=== PATIENT | female | born 1945 | race Two or more races ===

== ENCOUNTER 2022-01-04 09:58 | Inpatient (IN) | payer MEDICARE, OTHER ==
[~2022-01-04] VITALS: Ht 154.9 cm; Wt 67.2 kg
[2022-01-04 11:06] LABS: Basophils # (auto) 0 10 ^3/uL (0-0.2); Eosinophils # (auto) 0 10 ^3/uL (0-0.8); Lymphocytes # (auto) 0.2 10 ^3/uL (0.4-5.4); Monocytes # (auto) 0 10 ^3/uL (0-1.3); White Blood Cell 7.9 10^3/uL (4.4-10.8)
[2022-01-04 11:25] LABS: Lactic Acid w/Reflex 6.2 mmol/L (0.4-2.0)
[2022-01-04 11:27] LABS: Albumin 3.3 g/dL (3.4-5.0); Anion Gap 13 (5-15); Blood Alcohol < 3.0 mg/dL (0-5); Blood Urea Nitrogen 30 mg/dL (7-18); Calcium 8.4 mg/dL (8.5-10.1); Carbon Dioxide 18 mmol/L (21-32); Chloride 111 mmol/L (98-107); Glucose 109 mg/dL (74-106); Potassium 3.3 mmol/L (3.5-5.1); Sodium 142 mmol/L (136-145)
[2022-01-04 11:30] LABS: Alanine Aminotransferase 24 U/L (13-56); Alkaline Phosphatase 78 U/L (45-117); Aspartate Aminotransferase 22 U/L (15-37); BUN/Creatinine Ratio 19.9; Bilirubin, Total 1.2 mg/dL (0.2-1.0); GFR African American 43 mL/min; GFR Non-African American 35 mL/min; Total Protein 6.4 g/dL (6.4-8.2)
[2022-01-04] MEDS ORDERED: SODIUM CHLORIDE 0.9% 1,000 ML IV ONE (11:30)
[2022-01-04 11:36] LABS: Basophils % (auto) 0.2 % (0.0-2.0); Eosinophils % (auto) 0.1 % (0.0-7.0); Hematocrit 38.7 % (36.0-46.0); Hemoglobin 12.6 g/dL (12.2-16.2); Lymphocytes % (auto) 2.7 % (10.0-50.0); Mean Corpuscular Hemoglobin 26.7 pg (28.0-32.0); Mean Corpuscular Hgb Conc. 32.6 g/dL (32.0-36.0); Mean Corpuscular Volume 81.9 fL (80.0-100.0); Monocytes % (auto) 0.6 % (0.0-12.0); Neutrophils # (auto) 7.6 10 ^3/uL (1.6-8.6); Neutrophils % (auto) 96.4 % (37.0-80.0); Red Blood Cells 4.73 10^6/uL (4.0-5.20); Red Cell Distribution Width 16.7 % (11.8-14.3)
[2022-01-04 12:13] LABS: INR 1.11 (0.9-1.15); Partial Thromboplastin Time 21.3 sec (24.6-33.4)
[2022-01-04 13:04] LABS: Urine Bacteria MOD /hpf (None Seen); Urine Blood Negative /uL (Negative); Urine WBC 4 /hpf (0 - 5)
[2022-01-04] MEDS ORDERED: SODIUM CHLORIDE 0.9% 1,000 ML IVB ONE (13:45)
[2022-01-04] MEDS ORDERED: cefTRIAXone 1GM/50ML D5W 50 ML IV ONE (13:45)
[2022-01-04] MEDS ORDERED: AZITHROMYCIN 500MG/ 250ML 250 ML IV ONE (13:45)
[2022-01-04] MEDS ORDERED: HYDROcodone-ACET 5/325MG TAB PO PRN (15:30)
[2022-01-04] MEDS ORDERED: MORPHINE SULFATE INJ 2 MG/ml SYRG IV PRN (15:30)
[2022-01-04] MEDS ORDERED: DOCUSATE SOD 100 MG CAP PO PRN (15:30)
[2022-01-04] MEDS: SODIUM CHLORIDE 0.9% 1,000 ML IV SCH (15:46)
[2022-01-04] MEDS: ACETAMINOPHEN 325 MG TAB PO PRN (17:29)
[2022-01-04 20:32] VITALS: BP 100/54
[2022-01-04 22:00] VITALS: BP 91/58
[2022-01-04] MEDS ORDERED: ALBUMIN 5% 250 ML IV ONE (23:15)
[2022-01-05] MEDS ORDERED: VANCOMYCIN PER PHARMACY 0 MG IV SCH (02:00)
[2022-01-05] MEDS ORDERED: VANCOMYCIN 1GM/250ML 250 ML IV ONE (02:30)
[2022-01-05 05:00] VITALS: BP 102/63
[2022-01-05 06:35] LABS: Basophils # (auto) 0 10 ^3/uL (0-0.2); Eosinophils # (auto) 0 10 ^3/uL (0-0.8); Eosinophils % (auto) 0.1 % (0.0-7.0); Hematocrit 34.2 % (36.0-46.0); Hemoglobin 10.7 g/dL (12.2-16.2); Mean Corpuscular Volume 84.8 fL (80.0-100.0); Monocytes # (auto) 0.5 10 ^3/uL (0-1.3); Red Blood Cells 4.03 10^6/uL (4.0-5.20)
[2022-01-05 06:40] LABS: Basophils % (auto) 0.2 % (0.0-2.0); Lymphocytes # (auto) 0.5 10 ^3/uL (0.4-5.4); Lymphocytes % (auto) 2.8 % (10.0-50.0); Mean Corpuscular Hemoglobin 26.6 pg (28.0-32.0); Mean Corpuscular Hgb Conc. 31.4 g/dL (32.0-36.0); Monocytes % (auto) 2.6 % (0.0-12.0); Neutrophils # (auto) 18.5 10 ^3/uL (1.6-8.6); Neutrophils % (auto) 94.3 % (37.0-80.0); Red Cell Distribution Width 16.9 % (11.8-14.3); White Blood Cell 19.7 10^3/uL (4.4-10.8)
[2022-01-05 06:41] LABS: Potassium 3.3 mmol/L (3.5-5.1)
[2022-01-05 06:54] LABS: Albumin 2.5 g/dL (3.4-5.0); BUN/Creatinine Ratio 26.8; Bilirubin, Total 1.2 mg/dL (0.2-1.0); Calcium 7.3 mg/dL (8.5-10.1); Total Protein 5.7 g/dL (6.4-8.2)
[2022-01-05 08:10] VITALS: BP 115/62
[2022-01-05] MEDS: ACETAMINOPHEN 325 MG TAB PO PRN (08:25)
[2022-01-05] MEDS: SODIUM CHLORIDE 0.9% 1,000 ML IV SCH ×2 (09:10→17:02)
[2022-01-05] MEDS ORDERED: cefTRIAXone 1GM/50ML D5W 50 ML IV SCH (10:00)
[2022-01-05] MEDS ORDERED: AZITHROMYCIN 500MG/ 250ML 250 ML IV SCH (10:00)
[2022-01-05] MEDS ORDERED: ENOXAPARIN SOD 30 MG/0.3 ML SYRINGE SC SCH (10:00)
[2022-01-05 12:15] VITALS: BP 105/60
[2022-01-05] MEDS: PIPERACILLIN-TAZOB 3.375GM 100 ML IV SCH ×2 (14:21→21:02)
[2022-01-05] MEDS ORDERED: POTASSIUM CHL 20 Meq TABLET PO ONE (14:45)
[2022-01-05 16:15] VITALS: BP 81/40
[2022-01-05 19:15] VITALS: BP 100/57
[2022-01-05 22:00] VITALS: BP 129/73
[2022-01-06 05:00] VITALS: BP 114/64
[2022-01-06] MEDS: PIPERACILLIN-TAZOB 3.375GM 100 ML IV SCH (05:18)
[2022-01-06] MEDS: SODIUM CHLORIDE 0.9% 1,000 ML IV SCH ×2 (05:21→11:43)
[2022-01-06 08:09] LABS: BUN/Creatinine Ratio 21.7
[2022-01-06 09:00] VITALS: BP 137/78
[2022-01-06 10:33] LABS: Basophils # (auto) 0.1 10 ^3/uL (0-0.2); Basophils % (auto) 0.6 % (0.0-2.0); Eosinophils # (auto) 0.1 10 ^3/uL (0-0.8); Eosinophils % (auto) 1.1 % (0.0-7.0); Hematocrit 32.1 % (36.0-46.0); Hemoglobin 10.6 g/dL (12.2-16.2); Lymphocytes # (auto) 0.5 10 ^3/uL (0.4-5.4); Lymphocytes % (auto) 5.3 % (10.0-50.0); Mean Corpuscular Hemoglobin 26.8 pg (28.0-32.0); Mean Corpuscular Hgb Conc. 33.1 g/dL (32.0-36.0); Mean Corpuscular Volume 81.1 fL (80.0-100.0); Monocytes # (auto) 0.3 10 ^3/uL (0-1.3); Monocytes % (auto) 3.4 % (0.0-12.0); Neutrophils # (auto) 9.1 10 ^3/uL (1.6-8.6); Neutrophils % (auto) 89.6 % (37.0-80.0); Red Blood Cells 3.96 10^6/uL (4.0-5.20); Red Cell Distribution Width 17.2 % (11.8-14.3); White Blood Cell 10.1 10^3/uL (4.4-10.8)
[2022-01-06 13:00] VITALS: BP 108/63
[2022-01-06] MEDS ORDERED: ERTAPENEM SOD INJ 1 GM in SODIUM CHL 0.9% 50 ML IV ONE (14:00)
[2022-01-06] MEDS ORDERED: POTASSIUM CHL 20 Meq TABLET PO ONE (14:00)
[2022-01-06] MEDS ORDERED: metroNIDAZOLE 500 MG TAB PO ONE (14:00)
[2022-01-06] MEDS: SOD CHL 0.45% 1,000 ML IV SCH (14:00)
[2022-01-06 17:00] VITALS: BP 167/94
[2022-01-06] MEDS: metroNIDAZOLE 500 MG TAB PO SCH (21:25)
[2022-01-06 22:00] VITALS: BP 158/94
[2022-01-07] MEDS: SOD CHL 0.45% 1,000 ML IV SCH (03:20)
[2022-01-07 05:00] VITALS: BP 130/70
[2022-01-07] MEDS: metroNIDAZOLE 500 MG TAB PO SCH ×3 (05:06→21:24)
[2022-01-07 05:27] LABS: Basophils # (auto) 0 10 ^3/uL (0-0.2); Basophils % (auto) 0.5 % (0.0-2.0); Eosinophils # (auto) 0.2 10 ^3/uL (0-0.8); Monocytes # (auto) 0.5 10 ^3/uL (0-1.3); Nucleated Red Blood Cells % 0.1 %; White Blood Cell 7.1 10^3/uL (4.4-10.8)
[2022-01-07 05:29] LABS: Hematocrit 31.5 % (36.0-46.0); Hemoglobin 10.4 g/dL (12.2-16.2); Lymphocytes # (auto) 0.7 10 ^3/uL (0.4-5.4); Lymphocytes % (auto) 10.5 % (10.0-50.0); Mean Corpuscular Hemoglobin 26.8 pg (28.0-32.0); Mean Corpuscular Hgb Conc. 33.1 g/dL (32.0-36.0); Mean Corpuscular Volume 81.2 fL (80.0-100.0); Monocytes % (auto) 7.2 % (0.0-12.0); Neutrophils # (auto) 5.6 10 ^3/uL (1.6-8.6); Neutrophils % (auto) 78.8 % (37.0-80.0); Red Blood Cells 3.87 10^6/uL (4.0-5.20); Red Cell Distribution Width 17.1 % (11.8-14.3)
[2022-01-07 08:49] VITALS: BP 134/68
[2022-01-07] MEDS: ERTAPENEM SOD INJ 1 GM in SODIUM CHL 0.9% 50 ML IV SCH (10:02)
[2022-01-07] MEDS: ONDANSETRON HCL 4 MG/2 ML VIAL IV PRN (11:58)
[2022-01-07 12:32] VITALS: BP 143/72
[2022-01-07] MEDS ORDERED: POTASSIUM CHL 20 Meq TABLET PO ONE (12:45)
[2022-01-07] MEDS: FLORASTOR (S. BOULARDII) 250 MG CAP PO SCH (13:37)
[2022-01-07 17:00] VITALS: BP 128/72
[2022-01-07 22:00] VITALS: BP 146/82
[2022-01-08 05:00] VITALS: BP 147/86
[2022-01-08] MEDS: metroNIDAZOLE 500 MG TAB PO SCH ×3 (05:50→21:48)
[2022-01-08 06:27] LABS: Albumin 2.8 g/dL (3.4-5.0); BUN/Creatinine Ratio 13.4; Calcium 8.5 mg/dL (8.5-10.1); Phosphorus 2.5 mg/dL (2.5-4.90); Potassium 3.2 mmol/L (3.5-5.1)
[2022-01-08] MEDS: FLORASTOR (S. BOULARDII) 250 MG CAP PO SCH (08:53)
[2022-01-08] MEDS: ERTAPENEM SOD INJ 1 GM in SODIUM CHL 0.9% 50 ML IV SCH (08:54)
[2022-01-08 09:00] VITALS: BP 138/72
[2022-01-08 13:00] VITALS: BP 128/74
[2022-01-08] MEDS ORDERED: POTASSIUM EFFERVESENT TAB 25 MEQ PO ONE (14:30)
[2022-01-08 17:00] VITALS: BP 142/94
[2022-01-08] MEDS: ONDANSETRON HCL 4 MG/2 ML VIAL IV PRN (21:49)
[2022-01-08 22:00] VITALS: BP 149/89
[2022-01-09 05:00] VITALS: BP 129/78
[2022-01-09] MEDS: metroNIDAZOLE 500 MG TAB PO SCH ×2 (06:42→13:05)
[2022-01-09 08:30] VITALS: BP 140/98
[2022-01-09 09:00] VITALS: BP 140/98
[2022-01-09] MEDS: FLORASTOR (S. BOULARDII) 250 MG CAP PO SCH (10:06)
[2022-01-09] MEDS: ERTAPENEM SOD INJ 1 GM in SODIUM CHL 0.9% 50 ML IV SCH (10:06)
[2022-01-09 13:00] VITALS: BP 146/92
[2022-01-09 16:32] VITALS: BP 146/92
[2022-01-09 17:00] VITALS: BP 142/90
[2022-01-09] MEDS: ACETAMINOPHEN 325 MG TAB PO PRN (17:25)
== END 2022-01-09 20:03 | disposition home health service (06) | DRG 871 ==
LOC: EDBD 09:58 → ER 09:58 → TELE 15:37 → TELE-WESTW 18:31 → WEST WING 01-06 14:27
PROVIDERS: ADMIT Internal Medicine; ATTEND Internal Medicine
PROC: 05H933Z Insertion of Infusion Device into Right Brachial Vein, Percutaneous Approach (ICD-10-PCS; principal; 2022-01-06)
PROC: B54MZZA Ultrasonography of Right Upper Extremity Veins, Guidance (ICD-10-PCS; 2022-01-06)
DX: A41.9 Sepsis, unspecified organism (principal); I21.A1 Myocardial infarction type 2; J15.6 Pneumonia due to other Gram-negative bacteria; J96.01 Acute respiratory failure with hypoxia; N17.0 Acute kidney failure with tubular necrosis; E44.1 Mild protein-calorie malnutrition; N39.0 Urinary tract infection, site not specified; Z16.12 Extended spectrum beta lactamase (ESBL) resistance; K52.9 Noninfective gastroenteritis and colitis, unspecified; E87.6 Hypokalemia; D69.6 Thrombocytopenia, unspecified; Z68.27 Body mass index [BMI] 27.0-27.9, adult; D64.9 Anemia, unspecified; N18.30 Chronic kidney disease, stage 3 unspecified; I12.9 Hypertensive chronic kidney disease with stage 1 through stage 4 chronic kidney disease, or unspecified chronic kidney disease; B96.20 Unspecified Escherichia coli [E. coli] as the cause of diseases classified elsewhere; Z87.440 Personal history of urinary (tract) infections; Z86.73 Personal history of transient ischemic attack (TIA), and cerebral infarction without residual deficits; Z20.822 Contact with and (suspected) exposure to COVID-19
CPT/HCPCS: 36415; 70450; 71045; 80048; 80053; 80069; 80320; 81001; 82962; 83605; 83735; 83880; 84443; 84484; 85025; 85610; 85730; 87040; 87077; 87186; 93005; 96361; 96365; 96366; 96368; G0378; J0696; J1335; J2405; J2543

== ENCOUNTER 2022-01-14 21:51 | Emergency (ER) | payer MEDICARE, OTHER ==
[~2022-01-14] VITALS: Ht 165.1 cm; Wt 70.0 kg
[2022-01-14 22:36] LABS: Basophils # (auto) 0.1 10 ^3/uL (0-0.2); Nucleated Red Blood Cells % 0.1 %
[2022-01-14 22:38] LABS: Basophils % (auto) 0.5 % (0.0-2.0); Eosinophils # (auto) 0 10 ^3/uL (0-0.8); Eosinophils % (auto) 0.4 % (0.0-7.0); Hematocrit 32.1 % (36.0-46.0); Hemoglobin 10.7 g/dL (12.2-16.2); Lymphocytes # (auto) 1.4 10 ^3/uL (0.4-5.4); Lymphocytes % (auto) 12.2 % (10.0-50.0); Mean Corpuscular Hemoglobin 26.6 pg (28.0-32.0); Mean Corpuscular Hgb Conc. 33.2 g/dL (32.0-36.0); Mean Corpuscular Volume 80.2 fL (80.0-100.0); Monocytes # (auto) 0.7 10 ^3/uL (0-1.3); Monocytes % (auto) 6.1 % (0.0-12.0); Neutrophils # (auto) 9.3 10 ^3/uL (1.6-8.6); Neutrophils % (auto) 80.8 % (37.0-80.0); Red Blood Cells 4.01 10^6/uL (4.0-5.20); Red Cell Distribution Width 16.7 % (11.8-14.3); White Blood Cell 11.6 10^3/uL (4.4-10.8)
[2022-01-14 22:57] LABS: Calcium 8.4 mg/dL (8.5-10.1)
[2022-01-14 23:00] LABS: Bilirubin, Total 1.3 mg/dL (0.2-1.0); Total Protein 6.8 g/dL (6.4-8.2)
[2022-01-15] MEDS ORDERED: KETOROLAC TROMETH 60MG/2ML VIAL IM ONE (01:30)
[2022-01-15 02:05] LABS: Basophils # (auto) 0.2 10 ^3/uL (0-0.2); Eosinophils # (auto) 0.1 10 ^3/uL (0-0.8); Hemoglobin 10.4 g/dL (12.2-16.2); Lymphocytes # (auto) 1.7 10 ^3/uL (0.4-5.4); Neutrophils # (auto) 8.7 10 ^3/uL (1.6-8.6)
[2022-01-15 02:05] LABS: Urine Bacteria NONE SEEN /hpf (None Seen); Urine Blood Negative /uL (Negative); Urine Specific Gravity 1.013 (1.001-1.035); Urine WBC 8 /hpf (0 - 5)
[2022-01-15 02:07] LABS: Basophils % (auto) 1.5 % (0.0-2.0); Eosinophils % (auto) 0.7 % (0.0-7.0); Hematocrit 31.2 % (36.0-46.0); Lymphocytes % (auto) 14.6 % (10.0-50.0); Mean Corpuscular Hemoglobin 26.8 pg (28.0-32.0); Mean Corpuscular Hgb Conc. 33.3 g/dL (32.0-36.0); Mean Corpuscular Volume 80.4 fL (80.0-100.0); Monocytes # (auto) 0.8 10 ^3/uL (0-1.3); Monocytes % (auto) 6.7 % (0.0-12.0); Neutrophils % (auto) 76.5 % (37.0-80.0); Nucleated Red Blood Cells % 0.1 %; Red Blood Cells 3.88 10^6/uL (4.0-5.20); Red Cell Distribution Width 16.5 % (11.8-14.3); White Blood Cell 11.3 10^3/uL (4.4-10.8)
[2022-01-15 02:33] LABS: Albumin 2.9 g/dL (3.4-5.0); BUN/Creatinine Ratio 9.9; Calcium 8.2 mg/dL (8.5-10.1)
[2022-01-15 02:36] LABS: Bilirubin, Total 1.3 mg/dL (0.2-1.0); Total Protein 6.6 g/dL (6.4-8.2)
[2022-01-15 02:39] LABS: Potassium 2.9 mmol/L (3.5-5.1)
[2022-01-15] MEDS ORDERED: POTASSIUM CHL 20 Meq TABLET PO ONE (03:00)
[2022-01-15 07:20] VITALS: BP 113/75
== END 2022-01-15 07:26 | disposition home or self-care (01) ==
LOC: EDBD 21:51 → EDUNIT# 21:51 → ER 21:51
DX: R10.31 Right lower quadrant pain (principal); I10 Essential (primary) hypertension; Z86.73 Personal history of transient ischemic attack (TIA), and cerebral infarction without residual deficits
CPT/HCPCS: 36415; 74176; 80053; 81001; 83880; 84484; 85025; 93005; 96372; 99285; J1885

== ENCOUNTER 2023-02-25 17:28 | Inpatient (IN) | payer MEDICARE, OTHER ==
[~2023-02-25] VITALS: Ht 154.9 cm; Wt 67.0 kg
[2023-02-25 18:19] LABS: Basophils # (auto) 0.1 10 ^3/uL (0-0.2); Eosinophils # (auto) 0.1 10 ^3/uL (0-0.8); Eosinophils % (auto) 1.4 % (0.0-7.0); Hematocrit 36.4 % (36.0-46.0); Hemoglobin 12.1 g/dL (12.2-16.2); Lymphocytes # (auto) 1.5 10 ^3/uL (0.4-5.4); Lymphocytes % (auto) 19.7 % (10.0-50.0); Mean Corpuscular Hemoglobin 28.2 pg (28.0-32.0); Mean Corpuscular Hgb Conc. 33.2 g/dL (32.0-36.0); Mean Corpuscular Volume 84.9 fL (80.0-100.0); Monocytes # (auto) 0.5 10 ^3/uL (0-1.3); Monocytes % (auto) 6.9 % (0.0-12.0); Neutrophils # (auto) 5.3 10 ^3/uL (1.6-8.6); Nucleated Red Blood Cells % 0.1 %; Red Blood Cells 4.29 10^6/uL (4.0-5.20); Red Cell Distribution Width 15.7 % (11.8-14.3); White Blood Cell 7.5 10^3/uL (4.4-10.8)
[2023-02-25 18:27] LABS: Urine Bacteria FEW /hpf (None Seen); Urine Blood Negative /uL (Negative); Urine Clarity HAZY (Clear); Urine Color Yellow (Yellow); Urine Protein, UAD 1+ (Negative); Urine Specific Gravity 1.014 (1.001-1.035); Urine Urobilinogen Normal (Negative); Urine WBC 60 /hpf (0 - 5); Urine pH 5.5 (5.0-8.0)
[2023-02-25 18:43] LABS: Alanine Aminotransferase 25 U/L (7-40); Albumin 4.3 g/dL (3.2-4.8); Alkaline Phosphatase 63 U/L (46-116); Anion Gap 11 (5-15); Aspartate Aminotransferase 20 U/L (13-40); BUN/Creatinine Ratio 15.5 (10.0-20.0); Blood Urea Nitrogen 18 mg/dL (9-23); Carbon Dioxide 18 mmol/L (20-30); Chloride 111 mmol/L (98-107); Glucose 134 mg/dL (74-106); Magnesium 1.9 mg/dL (1.6-2.6); Potassium 3.5 mmol/L (3.5-5.1); Sodium 140 mmol/L (136-145)
[2023-02-25 18:44] LABS: Total Protein 6.8 g/dL (5.7-8.2)
[2023-02-25] MEDS ORDERED: SODIUM CHLORIDE 0.9% 2,050 ML IV ONE (22:00)
[2023-02-25] MEDS ORDERED: ACETAMINOPHEN 325 MG TAB PO PRN ×2 (22:00→22:15)
[2023-02-25] MEDS ORDERED: cefTRIAXone 1GM/50ML D5W 50 ML IV SCH (22:00)
[2023-02-25 22:10] VITALS: RESP 16; O2SAT 98
[2023-02-25] MEDS ORDERED: MORPHINE SULFATE INJ 2 MG/ml SYRG IV PRN (22:15)
[2023-02-25] MEDS ORDERED: ONDANSETRON HCL 4 MG/2 ML VIAL IV PRN (22:15)
[2023-02-25] MEDS ORDERED: NITROGLYCERIN 0.4 MG SL TAB SL PRN (22:15)
[2023-02-25] MEDS: cefTRIAXone 1GM/50ML D5W 50 ML IV SCH (23:45)
[2023-02-26 05:35] LABS: Anion Gap 9 (5-15); Basophils # (auto) 0 10 ^3/uL (0-0.2); Basophils % (auto) 0.6 % (0.0-2.0); Carbon Dioxide 23 mmol/L (20-30); Chloride 110 mmol/L (98-107); Eosinophils # (auto) 0.2 10 ^3/uL (0-0.8); Eosinophils % (auto) 3.1 % (0.0-7.0); Hematocrit 33.7 % (36.0-46.0); Hemoglobin 11.2 g/dL (12.2-16.2); Lymphocytes # (auto) 1.9 10 ^3/uL (0.4-5.4); Lymphocytes % (auto) 33.6 % (10.0-50.0); Mean Corpuscular Hemoglobin 28.4 pg (28.0-32.0); Mean Corpuscular Hgb Conc. 33.3 g/dL (32.0-36.0); Mean Corpuscular Volume 85.3 fL (80.0-100.0); Monocytes # (auto) 0.5 10 ^3/uL (0-1.3); Monocytes % (auto) 8.5 % (0.0-12.0); Neutrophils # (auto) 3.1 10 ^3/uL (1.6-8.6); Neutrophils % (auto) 54.2 % (37.0-80.0); Nucleated Red Blood Cells % 0.2 %; Potassium 3.4 mmol/L (3.5-5.1); Red Blood Cells 3.95 10^6/uL (4.0-5.20); Red Cell Distribution Width 15.9 % (11.8-14.3); Sodium 142 mmol/L (136-145); White Blood Cell 5.8 10^3/uL (4.4-10.8)
[2023-02-26 05:36] LABS: Calcium 8.6 mg/dL (8.5-10.1)
[2023-02-26 05:41] LABS: BUN/Creatinine Ratio 14.1 (10.0-20.0); Blood Urea Nitrogen 12 mg/dL (9-23); Glucose 91 mg/dL (74-106)
[2023-02-26 09:00] VITALS: PULSE 61; RESP 12; O2SAT 95
[2023-02-26] MEDS ORDERED: cefTRIAXone 1GM/50ML D5W 50 ML IV SCH (09:00)
[2023-02-26] MEDS: ENOXAPARIN SOD 40 MG/0.4 ML SYRINGE SC SCH (09:58)
[2023-02-26] MEDS: amLODIPine BESYLATE 5 MG TAB PO SCH (09:59)
[2023-02-26 11:21] VITALS: BP 143/89; PULSE 64; RESP 16; TEMP 97.5; O2SAT 94
[2023-02-26 16:50] VITALS: BP 127/78; PULSE 69; RESP 18; TEMP 98.4; O2SAT 93
[2023-02-26 20:00] VITALS: BP 145/83; PULSE 81; PULSE 82; TEMP 36.9
[2023-02-26 22:00] VITALS: BP 134/71; PULSE 67; RESP 17; TEMP 97.6; O2SAT 96
[2023-02-26] MEDS: DONEPEZIL HYDROCHLORIDE 5 MG TAB PO SCH (22:22)
[2023-02-26] MEDS: cefTRIAXone 1GM/50ML D5W 50 ML IV SCH (22:22)
[2023-02-27] VITALS (7 sets, daily range): BP systolic 108–141; BP diastolic 61–90; PULSE 64–89; RESP 16–20; TEMP 97.8–98.3; O2SAT 92–98
[2023-02-27] MEDS: amLODIPine BESYLATE 5 MG TAB PO SCH (08:42)
[2023-02-27] MEDS: ENOXAPARIN SOD 40 MG/0.4 ML SYRINGE SC SCH (08:43)
[2023-02-27] MEDS ORDERED: ASPirin 81 mg TAB PO ONE (21:00)
[2023-02-27] MEDS: HYDROCORTISONE 2.5% TOPICAL CREAM 30GM TUBE TOP SCH (21:51)
[2023-02-27] MEDS: DONEPEZIL HYDROCHLORIDE 5 MG TAB PO SCH (21:51)
[2023-02-27] MEDS: cefTRIAXone 1GM/50ML D5W 50 ML IV SCH (22:08)
[2023-02-28 02:39] LABS: COVID19 ANTIGEN SOFIA FIA NEGATIVE (NEGATIVE)
[2023-02-28 05:00] VITALS: BP 125/82; PULSE 65; RESP 16; TEMP 98.3; O2SAT 94
[2023-02-28 08:00] VITALS: BP 141/79; PULSE 55; PULSE 67; RESP 19; TEMP 99; O2SAT 97
[2023-02-28] MEDS: amLODIPine BESYLATE 5 MG TAB PO SCH (08:32)
[2023-02-28] MEDS: ENOXAPARIN SOD 40 MG/0.4 ML SYRINGE SC SCH (08:34)
[2023-02-28] MEDS: HYDROCORTISONE 2.5% TOPICAL CREAM 30GM TUBE TOP SCH (08:56)
[2023-02-28] MEDS ORDERED: ASPirin 81 mg TAB PO SCH (10:00)
[2023-02-28 10:38] VITALS: BP 142/79; PULSE 67; RESP 18; TEMP 98.2; O2SAT 97
== END 2023-02-28 13:18 | DRG 65 ==
LOC: ER 17:28 → TELE 22:20 → TELE-CENTR 02-26 11:09
PROVIDERS: ADMIT Nurse Practitioner; ATTEND Family Medicine
PROC: 05H933Z Insertion of Infusion Device into Right Brachial Vein, Percutaneous Approach (ICD-10-PCS; principal; 2023-02-27)
PROC: B54MZZA Ultrasonography of Right Upper Extremity Veins, Guidance (ICD-10-PCS; 2023-02-27)
DX: I63.9 Cerebral infarction, unspecified (principal); N39.0 Urinary tract infection, site not specified; F03.90 Unspecified dementia, unspecified severity, without behavioral disturbance, psychotic disturbance, mood disturbance, and anxiety; I10 Essential (primary) hypertension; R29.6 Repeated falls; Z20.822 Contact with and (suspected) exposure to COVID-19
CPT/HCPCS: 36415; 70450; 70551; 71045; 72131; 80048; 80053; 81001; 83605; 83735; 84484; 85025; 87040; 87086; 87426; 93005; 96360; 96372; 97163; G0378; J0696

== ENCOUNTER 2023-07-15 13:26 | Inpatient (IN) | payer MEDICARE, MEDICAID ==
[~2023-07-15] VITALS: Ht 157.5 cm; Wt 68.9 kg
[2023-07-15 14:04] LABS: Basophils # (auto) 0 10 ^3/uL (0-0.2); Basophils % (auto) 0.5 % (0.0-2.0); Eosinophils # (auto) 0.1 10 ^3/uL (0-0.8); Eosinophils % (auto) 1.4 % (0.0-7.0); Hematocrit 39.8 % (36.0-46.0); Hemoglobin 13.1 g/dL (12.2-16.2); Lymphocytes # (auto) 1.8 10 ^3/uL (0.4-5.4); Lymphocytes % (auto) 19.6 % (10.0-50.0); Mean Corpuscular Hemoglobin 28.5 pg (28.0-32.0); Mean Corpuscular Hgb Conc. 32.9 g/dL (32.0-36.0); Mean Corpuscular Volume 86.7 fL (80.0-100.0); Monocytes # (auto) 0.5 10 ^3/uL (0-1.3); Monocytes % (auto) 5.6 % (0.0-12.0); Neutrophils # (auto) 6.7 10 ^3/uL (1.6-8.6); Neutrophils % (auto) 72.9 % (37.0-80.0); Red Blood Cells 4.58 10^6/uL (4.0-5.20); Red Cell Distribution Width 15.5 % (11.8-14.3); White Blood Cell 9.2 10^3/uL (4.4-10.8)
[2023-07-15 14:48] LABS: Chloride 109 mmol/L (98-107); Potassium 4.3 mmol/L (3.5-5.1); Sodium 141 mmol/L (136-145)
[2023-07-15 14:49] LABS: Anion Gap 11 (5-15); Carbon Dioxide 21 mmol/L (20-30)
[2023-07-15 14:50] LABS: Calcium 9.1 mg/dL (8.5-10.1)
[2023-07-15 14:54] LABS: BUN/Creatinine Ratio 22.9 (10.0-20.0); Blood Urea Nitrogen 22 mg/dL (9-23); Glucose 103 mg/dL (74-106)
[2023-07-15] MEDS ORDERED: DOCUSATE SOD 100 MG CAP PO PRN (16:15)
[2023-07-15] MEDS: SODIUM CHLORIDE 0.9% 500 ML IV ONE (17:20)
[2023-07-15] MEDS: ONDANSETRON HCL 4 MG/2 ML VIAL IV ONE (17:21)
[2023-07-15 17:25] LABS: Urine Bacteria NONE SEEN /hpf (None Seen); Urine Blood Negative /uL (Negative); Urine Clarity Clear (Clear); Urine Color Yellow (Yellow); Urine Protein, UAD Negative (Negative); Urine Specific Gravity 1.012 (1.001-1.035); Urine Urobilinogen Normal (Negative); Urine WBC 3 /hpf (0 - 5); Urine pH 5.5 (5.0-8.0)
[2023-07-15] MEDS: ACETAMINOPHEN 325 MG TAB PO PRN (17:28)
[2023-07-15] MEDS: LACTATED RINGER'S 1,000 ML IV ONE (20:09)
[2023-07-15] MEDS: SODIUM CHLOR 0.9% PF (SALINE LOCK) 10ML VIAL/SYR IV SCH (22:00)
[2023-07-15 23:30] VITALS: PULSE 68; RESP 19; O2SAT 95
[2023-07-16] MEDS: ENOXAPARIN SOD 40 MG/0.4 ML SYRINGE SC SCH (08:55)
[2023-07-16] MEDS: LORazepam 2MG/ML-1ML VIAL IV ONE (14:00)
[2023-07-16] MEDS: ASPirin 81 mg TAB PO ONE (14:07)
[2023-07-16] MEDS: ONDANSETRON HCL 4 MG/2 ML VIAL IV PRN (19:47)
[2023-07-16] MEDS: ATORVASTATIN 20 MG TAB PO SCH (21:48)
[2023-07-16] MEDS: DONEPEZIL HYDROCHLORIDE 5 MG TAB PO SCH (21:48)
[2023-07-17] VITALS (9 sets, daily range): BP systolic 112–141; BP diastolic 65–81; PULSE 50–86; RESP 16–20; TEMP 97.7–98.5; O2SAT 91–96
[2023-07-17] MEDS ORDERED: DONE5TAB80 PO (02:03)
[2023-07-17] MEDS ORDERED: HYDR-4227 PO (02:03)
[2023-07-17] MEDS ORDERED: AMLO1TAB22 PO (02:03)
[2023-07-17] MEDS ORDERED: ASPI-543 PO (02:03)
[2023-07-17] MEDS: HYDROcodone-ACET 5/325MG TAB PO PRN (03:51)
[2023-07-17 06:39] LABS: INR 1.09 (0.9-1.15); Prothrombin Time 11.4 sec (9.3-11.8)
[2023-07-17 06:51] LABS: Albumin 3.8 g/dL (3.2-4.8); Alkaline Phosphatase 63 U/L (46-116); Anion Gap 8 (5-15); Aspartate Aminotransferase 15 U/L (13-40); BUN/Creatinine Ratio 15.8 (10.0-20.0); Bilirubin, Total 0.9 mg/dL (0.2-1.0); Blood Urea Nitrogen 15 mg/dL (9-23); Carbon Dioxide 23 mmol/L (20-30); Chloride 110 mmol/L (98-107); Cholesterol 166 mg/dL (< 200); Glucose 92 mg/dL (74-106); HDL Cholesterol 34 mg/dL (40-59); LDL Cholesterol 123 mg/dL (< 100); Potassium 4.2 mmol/L (3.5-5.1); Sodium 141 mmol/L (136-145); Total Protein 6.4 g/dL (5.7-8.2); Triglycerides 107 mg/dL (< 150)
[2023-07-17 06:56] LABS: Alanine Aminotransferase < 9 U/L (7-40)
[2023-07-17] MEDS: ASPirin 81 mg TAB PO SCH (09:52)
[2023-07-17] MEDS: amLODIPine BESYLATE 5 MG TAB PO SCH (09:52)
[2023-07-17] MEDS ORDERED: DONE10TA91 PO (14:00)
[2023-07-17] MEDS ORDERED: AMLO1TAB23 PO (14:00)
[2023-07-17] MEDS ORDERED: ERGO1CAP12 PO (14:03)
[2023-07-17] MEDS ORDERED: MELO-335 PO (14:03)
[2023-07-17] MEDS ORDERED: OMEP20TA PO (14:03)
[2023-07-17] MEDS ORDERED: TRAZ-227 PO (14:03)
[2023-07-17] MEDS ORDERED: CITA10TA5 PO (14:03)
[2023-07-18 05:00] VITALS: BP 123/74; PULSE 54; RESP 16; TEMP 98.4; O2SAT 95
[2023-07-18 07:30] VITALS: PULSE 47; RESP 18
[2023-07-18 09:06] VITALS: BP 118/61; PULSE 51; RESP 20; TEMP 98.4; O2SAT 98
[2023-07-18] MEDS ORDERED: ASPI-325 PO (09:14)
[2023-07-18] MEDS ORDERED: ATOR20TA50 PO (09:14)
[2023-07-18 10:30] VITALS: BP 118/61; PULSE 63; RESP 18; TEMP 36.9; O2SAT 98
== END 2023-07-18 11:12 | disposition home or self-care (01) | DRG 69 ==
LOC: ER 13:26 → TELE 16:14 → TELE-CENTR 07-16 22:32
PROVIDERS: ADMIT Internal Medicine; ATTEND Internal Medicine
DX: G45.9 Transient cerebral ischemic attack, unspecified (principal); F03.94 Unspecified dementia, unspecified severity, with anxiety; B69.0 Cysticercosis of central nervous system; F03.93 Unspecified dementia, unspecified severity, with mood disturbance; H53.2 Diplopia; N18.30 Chronic kidney disease, stage 3 unspecified; J44.9 Chronic obstructive pulmonary disease, unspecified; E11.22 Type 2 diabetes mellitus with diabetic chronic kidney disease; E78.5 Hyperlipidemia, unspecified; Z96.653 Presence of artificial knee joint, bilateral; I12.9 Hypertensive chronic kidney disease with stage 1 through stage 4 chronic kidney disease, or unspecified chronic kidney disease; F17.200 Nicotine dependence, unspecified, uncomplicated; Z87.442 Personal history of urinary calculi; Z90.710 Acquired absence of both cervix and uterus; Z86.73 Personal history of transient ischemic attack (TIA), and cerebral infarction without residual deficits; Z79.899 Other long term (current) drug therapy; Z79.82 Long term (current) use of aspirin; Z87.440 Personal history of urinary (tract) infections; Z80.1 Family history of malignant neoplasm of trachea, bronchus and lung
CPT/HCPCS: 36415; 70450; 70551; 71045; 80048; 80053; 80061; 81001; 82607; 82746; 84443; 85025; 85610; 85730; 93306; 93886; 97110; 97116; 97163; G0378; J2405

== ENCOUNTER 2023-10-21 18:57 | Emergency (ER) | payer MEDICARE, MEDICAID ==
[~2023-10-21] VITALS: Ht 157.5 cm; Wt 66.3 kg
[~2023-10-21 18:57] MED LIST: AMLO1TAB23 PO; ASPI-325 PO; ASPI-543 PO; ATOR20TA50 PO; CITA10TA5 PO; DONE10TA91 PO; ERGO1CAP12 PO; HYDR-2792 PO; MELO15TA29 PO; OMEP20TA PO; TRAZ-227 PO
[2023-10-21 19:44] LABS: Urine Bacteria FEW /hpf (None Seen); Urine Blood Negative /uL (Negative); Urine Clarity Clear (Clear); Urine Color Light-Yellow (Yellow); Urine Protein, UAD Negative (Negative); Urine Specific Gravity 1.011 (1.001-1.035); Urine Urobilinogen Normal (Negative); Urine WBC 11 /hpf (0 - 5)
[2023-10-21 20:22] LABS: Basophils # (auto) 0 10 ^3/uL (0-0.2); Basophils % (auto) 0.4 % (0.0-2.0); Eosinophils # (auto) 0.1 10 ^3/uL (0-0.8); Eosinophils % (auto) 0.9 % (0.0-7.0); Hematocrit 35.8 % (36.0-46.0); Hemoglobin 12.1 g/dL (12.2-16.2); Lymphocytes # (auto) 1.6 10 ^3/uL (0.4-5.4); Lymphocytes % (auto) 23.3 % (10.0-50.0); Mean Corpuscular Hemoglobin 28.8 pg (28.0-32.0); Mean Corpuscular Hgb Conc. 33.8 g/dL (32.0-36.0); Mean Corpuscular Volume 85.1 fL (80.0-100.0); Monocytes # (auto) 0.4 10 ^3/uL (0-1.3); Monocytes % (auto) 6.1 % (0.0-12.0); Neutrophils # (auto) 4.8 10 ^3/uL (1.6-8.6); Neutrophils % (auto) 69.3 % (37.0-80.0); Red Cell Distribution Width 15.6 % (11.8-14.3); White Blood Cell 6.9 10^3/uL (4.4-10.8)
[2023-10-21 20:23] LABS: Chloride 110 mmol/L (98-107); Potassium 3.9 mmol/L (3.5-5.1); Sodium 142 mmol/L (136-145)
[2023-10-21 20:24] LABS: Anion Gap 6 (5-15); Calcium 9.6 mg/dL (8.7-10.4); Carbon Dioxide 26 mmol/L (20-30)
[2023-10-21 20:29] LABS: BUN/Creatinine Ratio 19.8 (10.0-20.0); Blood Urea Nitrogen 20 mg/dL (9-23); Glucose 102 mg/dL (74-106)
[2023-10-21 21:25] VITALS: BP 149/81; PULSE 64; RESP 18; TEMP 98.9; O2SAT 98
[2023-10-21] MEDS: KETOROLAC TROMETH 60MG/2ML VIAL IM ONE (21:31)
== END 2023-10-21 21:35 | disposition home or self-care (01) ==
LOC: ER 18:57
DX: R51.9 Headache, unspecified (principal); I10 Essential (primary) hypertension; E78.5 Hyperlipidemia, unspecified; G30.9 Alzheimer's disease, unspecified; F02.80 Dementia in other diseases classified elsewhere, unspecified severity, without behavioral disturbance, psychotic disturbance, mood disturbance, and anxiety; Z98.890 Other specified postprocedural states
CPT/HCPCS: 36415; 70450; 80048; 81001; 84484; 85025; 93005; 96372; 99285; J1885

== ENCOUNTER 2024-01-10 20:33 | Inpatient (IN) | payer MEDICARE, MEDICAID ==
[~2024-01-10] VITALS: Ht 157.5 cm; Wt 63.3 kg
[2024-01-10] MEDS: ACETAMINOPHEN 325 MG TAB PO ONE (21:29)
[2024-01-10 22:01] LABS: Urine Bacteria None Seen /hpf (None Seen)
[2024-01-10 22:02] LABS: Basophils # (auto) 0 10 ^3/uL (0-0.2); Basophils % (auto) 0.3 % (0.0-2.0); Eosinophils # (auto) 0 10 ^3/uL (0-0.8); Eosinophils % (auto) 0.2 % (0.0-7.0); Hematocrit 38.1 % (36.0-46.0); Hemoglobin 12.8 g/dL (12.2-16.2); Lymphocytes # (auto) 0.9 10 ^3/uL (0.4-5.4); Lymphocytes % (auto) 7.7 % (10.0-50.0); Mean Corpuscular Hemoglobin 29.5 pg (28.0-32.0); Mean Corpuscular Hgb Conc. 33.6 g/dL (32.0-36.0); Mean Corpuscular Volume 87.6 fL (80.0-100.0); Monocytes # (auto) 0.9 10 ^3/uL (0-1.3); Monocytes % (auto) 7.7 % (0.0-12.0); Neutrophils # (auto) 9.6 10 ^3/uL (1.6-8.6); Neutrophils % (auto) 84.1 % (37.0-80.0); Platelet Count (auto) 203 10^3/uL (140-450); Red Blood Cells 4.34 10^6/uL (4.0-5.20); Red Cell Distribution Width 14.7 % (11.8-14.3); White Blood Cell 11.5 10^3/uL (4.4-10.8)
[2024-01-10 22:03] LABS: Alanine Aminotransferase 45 U/L (7-40); Albumin 4.5 g/dL (3.2-4.8); Alkaline Phosphatase 62 U/L (46-116); Anion Gap 10 (5-15); Aspartate Aminotransferase 29 U/L (13-40); BUN/Creatinine Ratio 12.8 (10.0-20.0); Blood Urea Nitrogen 14 mg/dL (9-23); Calcium 9.5 mg/dL (8.7-10.4); Carbon Dioxide 20 mmol/L (20-30); Chloride 109 mmol/L (98-107); Glucose 119 mg/dL (74-106); Potassium 3.9 mmol/L (3.5-5.1); Sodium 139 mmol/L (136-145)
[2024-01-10 22:04] LABS: Bilirubin, Total 2.1 mg/dL (0.2-1.0); Total Protein 7.5 g/dL (5.7-8.2)
[2024-01-10 22:18] LABS: Urine Blood Negative /uL (Negative); Urine Clarity Clear (Clear); Urine Color Yellow (Yellow); Urine Protein, UAD Negative (Negative); Urine Specific Gravity 1.009 (1.001-1.035); Urine Urobilinogen Normal (Negative); Urine WBC 28 /hpf (0 - 5); Urine pH 5.5 (5.0-9.0)
[2024-01-11] MEDS: cefTRIAXone 1GM/50ML D5W 50 ML IV ONE (02:10)
[2024-01-11 02:36] VITALS: PULSE 72; RESP 16; O2SAT 95
[2024-01-11 03:20] VITALS: PULSE 62; RESP 18; O2SAT 97
[2024-01-11] MEDS ORDERED: HYDROcodone-ACET 5/325MG TAB PO PRN (11:00)
[2024-01-11] MEDS ORDERED: ONDANSETRON HCL 4 MG/2 ML VIAL IV PRN (11:00)
[2024-01-11] MEDS ORDERED: ACETAMINOPHEN 325 MG TAB PO PRN (11:00)
[2024-01-11] MEDS ORDERED: ERGOCALCIFEROL 50,000 UNIT(1.25MG) CAP PO SCH (11:00)
[2024-01-11] MEDS ORDERED: DOCUSATE SOD 100 MG CAP PO PRN (11:00)
[2024-01-11] MEDS ORDERED: HYDROmorphone HCL 2 MG/ML VL/or syr IV PRN (11:00)
[2024-01-11] MEDS: SODIUM CHLOR 0.9% PF (SALINE LOCK) 10ML VIAL/SYR IV SCH (14:00)
[2024-01-11 15:07] VITALS: BP 117/61; PULSE 61; RESP 16; TEMP 98.2; O2SAT 93
[2024-01-11 20:00] VITALS: PULSE 65; RESP 15; O2SAT 95
[2024-01-11] MEDS: ATORVASTATIN 20 MG TAB PO SCH (20:57)
[2024-01-11] MEDS: hydrALAZINE HCL 10 MG TAB PO SCH (20:57)
[2024-01-11] MEDS: traZODone HCL 50 MG TAB PO SCH (20:59)
[2024-01-11 21:00] VITALS: BP 136/70; PULSE 65; RESP 15; TEMP 100.1; O2SAT 95
[2024-01-12 01:00] VITALS: BP 125/76; PULSE 88; RESP 15; TEMP 100; O2SAT 93
[2024-01-12 05:00] VITALS: BP 124/69; PULSE 84; RESP 14; TEMP 100.5; O2SAT 94
[2024-01-12 06:40] LABS: Basophils # (auto) 0 10 ^3/uL (0-0.2); Basophils % (auto) 0.3 % (0.0-2.0); Eosinophils # (auto) 0 10 ^3/uL (0-0.8); Eosinophils % (auto) 0.3 % (0.0-7.0); Hematocrit 36.1 % (36.0-46.0); Hemoglobin 12.3 g/dL (12.2-16.2); Lymphocytes # (auto) 1.3 10 ^3/uL (0.4-5.4); Lymphocytes % (auto) 15.6 % (10.0-50.0); Mean Corpuscular Hemoglobin 30.1 pg (28.0-32.0); Mean Corpuscular Volume 88.4 fL (80.0-100.0); Monocytes # (auto) 0.7 10 ^3/uL (0-1.3); Monocytes % (auto) 8.2 % (0.0-12.0); Neutrophils # (auto) 6.1 10 ^3/uL (1.6-8.6); Neutrophils % (auto) 75.6 % (37.0-80.0); Nucleated Red Blood Cells % 0.1 %; Platelet Count (auto) 195 10^3/uL (140-450); Red Blood Cells 4.08 10^6/uL (4.0-5.20); Red Cell Distribution Width 14.7 % (11.8-14.3)
[2024-01-12 07:05] LABS: Alanine Aminotransferase 30 U/L (7-40); Alkaline Phosphatase 55 U/L (46-116); Anion Gap 9 (5-15); BUN/Creatinine Ratio 14.8 (10.0-20.0); Blood Urea Nitrogen 16 mg/dL (9-23); Calcium 9.3 mg/dL (8.7-10.4); Carbon Dioxide 20 mmol/L (20-30); Chloride 111 mmol/L (98-107); Glucose 104 mg/dL (74-106); Potassium 3.4 mmol/L (3.5-5.1); Sodium 140 mmol/L (136-145)
[2024-01-12 07:06] LABS: Albumin 4.1 g/dL (3.2-4.8); Aspartate Aminotransferase 19 U/L (13-40); Bilirubin, Total 2.2 mg/dL (0.2-1.0); Total Protein 6.7 g/dL (5.7-8.2)
[2024-01-12 09:00] VITALS: BP 121/70; PULSE 66; RESP 18; TEMP 98.3; O2SAT 97
[2024-01-12] MEDS: PANTOPRAZOLE 40 MG/10 ML VIAL INJ IV SCH (09:38)
[2024-01-12] MEDS: ENOXAPARIN SOD 40 MG/0.4 ML SYRINGE SC SCH (09:38)
[2024-01-12] MEDS: DONEPEZIL HYDROCHLORIDE 5 MG TAB PO SCH (09:38)
[2024-01-12] MEDS: ASPirin-EC 81 mg tab PO SCH (09:39)
[2024-01-12] MEDS: amLODIPine BESYLATE 5 MG TAB PO SCH (09:40)
[2024-01-12] MEDS: cefTRIAXone 1GM/50ML D5W 50 ML IV SCH (09:48)
[2024-01-12] MEDS: CITALOPRAM HYDROBR 20 MG TAB PO SCH (09:54)
[2024-01-12 13:00] VITALS: BP 98/59; PULSE 78; RESP 18; TEMP 98.8; O2SAT 96
[2024-01-12 15:21] LABS: Amphetamine Screen, Urine Neg (NEGATIVE); Barbiturate Scree,Urine Neg (NEGATIVE); Benzodiazephine Screen, Urine Neg (NEGATIVE); Cocaine Screen, Urine Neg (NEGATIVE)
[2024-01-12 15:22] LABS: Cannabinoid Screen, Urine Neg (NEGATIVE); Opiate Scree,Urine Neg (NEGATIVE); Phencyclidine Screen, Urine Neg (NEGATIVE)
[2024-01-12 16:44] VITALS: BP 128/68; PULSE 54; RESP 16; TEMP 99.5; O2SAT 96
[2024-01-12 21:00] VITALS: BP 132/67; PULSE 72; RESP 15; TEMP 98.1; O2SAT 94
[2024-01-13 01:00] VITALS: BP 112/77; PULSE 67; RESP 15; TEMP 98.5; O2SAT 93
[2024-01-13 05:00] VITALS: BP 124/72; PULSE 75; RESP 14; TEMP 98.2; O2SAT 95
[2024-01-13 06:53] LABS: Basophils # (auto) 0 10 ^3/uL (0-0.2); Basophils % (auto) 0.3 % (0.0-2.0); Eosinophils # (auto) 0.1 10 ^3/uL (0-0.8); Hematocrit 33.7 % (36.0-46.0); Hemoglobin 11.5 g/dL (12.2-16.2); Lymphocytes # (auto) 1.2 10 ^3/uL (0.4-5.4); Lymphocytes % (auto) 15.5 % (10.0-50.0); Mean Corpuscular Hemoglobin 30.1 pg (28.0-32.0); Mean Corpuscular Hgb Conc. 34.1 g/dL (32.0-36.0); Mean Corpuscular Volume 88.3 fL (80.0-100.0); Monocytes # (auto) 0.7 10 ^3/uL (0-1.3); Monocytes % (auto) 9.5 % (0.0-12.0); Neutrophils # (auto) 5.6 10 ^3/uL (1.6-8.6); Neutrophils % (auto) 73.7 % (37.0-80.0); Platelet Count (auto) 201 10^3/uL (140-450); Red Blood Cells 3.82 10^6/uL (4.0-5.20); Red Cell Distribution Width 14.4 % (11.8-14.3); White Blood Cell 7.5 10^3/uL (4.4-10.8)
[2024-01-13 07:05] LABS: Alanine Aminotransferase 31 U/L (7-40); Albumin 3.9 g/dL (3.2-4.8); Alkaline Phosphatase 52 U/L (46-116); Anion Gap 8 (5-15); Aspartate Aminotransferase 17 U/L (13-40); BUN/Creatinine Ratio 19.4 (10.0-20.0); Bilirubin, Total 1.4 mg/dL (0.2-1.0); Blood Urea Nitrogen 19 mg/dL (9-23); Calcium 9.2 mg/dL (8.7-10.4); Carbon Dioxide 22 mmol/L (20-30); Chloride 110 mmol/L (98-107); Glucose 97 mg/dL (74-106); Potassium 3.4 mmol/L (3.5-5.1); Sodium 140 mmol/L (136-145); Total Protein 6.4 g/dL (5.7-8.2)
[2024-01-13 08:30] VITALS: RESP 14
[2024-01-13 09:00] VITALS: BP 116/72; PULSE 62; RESP 17; TEMP 99; O2SAT 97
[2024-01-13] MEDS: POTASSIUM EFFERVESENT TAB 25 MEQ GT ONE (09:43)
[2024-01-13] MEDS ORDERED: CIPR-173 PO (12:43)
[2024-01-13 13:00] VITALS: BP 117/60; PULSE 69; RESP 17; TEMP 98.3; O2SAT 91
== END 2024-01-13 14:30 | disposition home or self-care (01) | DRG 871 ==
LOC: ER 20:33 → OVERFLOW 01-11 10:53 → WEST WING 01-11 15:04
PROVIDERS: ADMIT Family Medicine; ATTEND Internal Medicine Geriatric Medicine
DX: A41.9 Sepsis, unspecified organism (principal); N17.0 Acute kidney failure with tubular necrosis; N30.00 Acute cystitis without hematuria; F02.80 Dementia in other diseases classified elsewhere, unspecified severity, without behavioral disturbance, psychotic disturbance, mood disturbance, and anxiety; I10 Essential (primary) hypertension; N28.89 Other specified disorders of kidney and ureter; G30.9 Alzheimer's disease, unspecified; E87.6 Hypokalemia; E78.5 Hyperlipidemia, unspecified; Z90.710 Acquired absence of both cervix and uterus; Z86.73 Personal history of transient ischemic attack (TIA), and cerebral infarction without residual deficits; Z80.1 Family history of malignant neoplasm of trachea, bronchus and lung; Z79.899 Other long term (current) drug therapy
CPT/HCPCS: 36415; 74176; 80053; 80307; 81001; 82306; 82607; 83036; 83605; 84443; 85025; 87086; G0378; J2470